=== PATIENT | female | born 1975 | race African-American/Black ===

== ENCOUNTER 2018-09-24 15:39 | Emergency (ER) | payer SELFPAY ==
[~2018-09-24 15:39] MED LIST: ISOVUE-370 76%-LOCM 1 ML ONE
[2018-09-24 16:07] LABS: Bilirubin Negative (Negative); Blood, Urine Negative (Negative); Clarity CLEAR (Clear); Glucose, Urine (Dipstick) Negative (Negative); Leukocyte Moderate (Negative); Nitrite Negative (Negative); Protein, Urine (Dipstick) Negative (Neg-Trace); Specific Gravity, Urine 1.021 (1.002-1.036); Urobilinogen 0.2 mg/dL (0.2-1.0); pH, Urine 6.5 (5.0-9.0)
[2018-09-24 16:08] LABS: Bacteria/HPF None Seen HPF (None Seen); Hyaline Casts/LPF 7-10 HYALINE CAST LPF (0-3 Hyaline); Pathc Cast-AUWi Flag 0.81 (0-2.49); Squamous Epithelial 0-3 HPF (0-3); WBC/HPF 21-50 HPF (0-3)
[2018-09-24 18:05] LABS: #Basophils 0.1 thou/uL (0.0-0.2); #Eosinphils 0.2 thou/uL (0.0-0.7); #Lymphocytes 3.6 thou/uL (1.20-3.40); #Monocytes 0.7 thou/uL (0.11-0.59); #Neutrophils 3.3 thou/uL (1.40-6.50); %Basophils 1.1 % (0.0-1.0); %Eosinophils 2.1 % (0.0-10.0); %Lymphocytes 45.2 % (21.0-51.0); %Monocytes 9.3 % (0.0-10.0); %Neutrophils 42.3 % (42.0-75.0); Hemoglobin 11.6 g/dL (12.0-16.0); Mean Corpuscular HGB CONC 31.4 g/dL (32.0-36.0); Mean Corpuscular Hemoglobin 29.1 pg (27.0-31.0); Mean Corpuscular Volume 92.5 fL (78.0-98.0); Mean Platelet Volume 7.3 fL (7.4-10.4); Platelet Count 416 thou/uL (130-400); RBC Distribution Width 13.3 % (11.5-14.5); Red Blood Cell (RBC) Count 4.01 mill/uL (4.20-5.40); White Blood Cell (WBC) Count 7.9 thou/uL (4.8-10.8)
[2018-09-24 18:10] LABS: BHCG - Serum Negative (NEGATIVE); Pregs Control Background? CLEAR/WHITE (CLR/WHITE); Pregs Control Bar Appear? YES (CONTROL BAR)
[2018-09-24] MEDS ORDERED: Ketorolac Tromethamine 30 MG/ML VIAL ONE (18:24)
[2018-09-24 18:26] LABS: ALT (SGPT) 14 U/L (8-55); AST (SGOT) 15 U/L (5-34); Albumin 3.5 g/dL (3.5-5.0); Alkaline Phosphatase 101 U/L (40-150); Anion Gap 10 mmol/L (10-20); BUN (Urea Nitrogen) 12 mg/dL (7.0-18.7); Bilirubin, Total Less than 0.2 mg/dL (0.2-1.2); Calc. Creatinine Clearance 0 mL/min (70-130); Calcium 8.5 mg/dL (7.8-10.44); Carbon Dioxide 26 mmol/L (22-29); Chloride 107 mmol/L (98-107); Estimated GFR-MDRD 89; Globulin 3.3 g/dL (2.4-3.5); Glucose 81 mg/dL (70-105); Lipase 26 U/L (8-78); Protein, Total 6.8 g/dL (6.0-8.3); Sodium 139 mmol/L (136-145)
--- NOTE | 2018-09-24 20:31 | CT ---
CT ABDOMEN AND PELVIS WITH CONTRAST: 09/24/18 HISTORY: Abdominal pain. COMPARISON: None. FINDINGS: Lung bases are clear. No pericardial effusion. Gallbladder is unremarkable. The spleen is small. Pancreas is unremarkable. No hydronephrosis. The aortoiliac contour is nonaneurysmal. No free intraperitoneal gas or fluid. Appendix is visualized and is normal. Mild degenerative changes of both hips. Moderate degenerative changes of the pubic symphysis. Moderate facet arthropathy lower lumbar spine. 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 No dilated loops of large or small bowel. IMPRESSION: No acute intra-abdominal abnormality. POS: [facility]
== END 2018-09-24 20:54 | disposition home or self-care (01) ==
LOC: ERS 15:39
DX: N39.0 Urinary tract infection, site not specified (principal); F32.9 Major depressive disorder, single episode, unspecified; F17.210 Nicotine dependence, cigarettes, uncomplicated
CPT/HCPCS: 36415; 74177; 80053; 81003; 81015; 83690; 84703; 85025; 87077; 87086; 87186; 96372; J1885; Q9966